=== PATIENT | female | born 1985 | race Caucasian/White ===

== ENCOUNTER 2017-09-06 21:21 | Emergency (ER) | payer MEDICAID ==
[2017-09-06 21:40] VITALS: BP 142/82
--- NOTE | 2017-09-06 22:07 | EDM.PDOC ---
ED HPI GENERAL MEDICAL PROBLEM - General Chief Complaint: Headache Stated Complaint: MIGRAINE Time Seen by Provider: 09/06/17 21:55 Source of Information: Reports: Patient History Limitations: Reports: No Limitations - History of Present Illness INITIAL COMMENTS - FREE TEXT/NARRATIVE: 31 years old female patient with history of migraine headache presented with chief complaint of migraine started this morning. Constant. Generalized aching. Denies any neck pain or stiffness. Denies any fever or chills. Associated with nausea and vomiting. Also light and sound sensitive what she has typical for her migraine. Denies any focal weakness or numbness anywhere. Also she is concerned that she might be . Headache Pain Score (Numeric/FACES): 10 - Related Data Allergies Allergy/AdvReac Type Severity Reaction Status Date / Time ranitidine HCl [From Zantac] Allergy Swelling Verified 10/03/16 19:25 Home Meds: Home Meds Loratadine [Claritin] 10 mg PO DAILY 07/14/14 [History] Methylphenidate HCl [Methylphenidate ER] 27 mg PO DAILY 07/14/14 [History] lamoTRIgine [LaMICtal] 200 mg PO DAILY 07/14/14 [History] methylPREDNISolone Acetate [Depo-Medrol] 1 mg IM ASDIRECTED 04/05/16 [History] Cholecalciferol (Vitamin D3) [Vitamin D3] 1 tab PO DAILY 09/06/17 [History] Past Medical History Gastrointestinal History: Reports: Chronic Constipation, GERD Neurological History: Reports: Migraines - Infectious Disease History Infectious Disease History: Reports: Chicken Pox - Past Surgical History HEENT Surgical History: Reports: Myringotomy w Tube(s), Tonsillectomy Social & Family History - Tobacco Use Smoking Status *Q: Current Every Day Smoker Years of Tobacco use: 3 Packs/Tins Daily: 0.5 Second Hand Smoke Exposure: No - Caffeine Use Caffeine Use: Reports: Coffee, Soda - Recreational Drug Use Recreational Drug Use: No ED ROS GENERAL - Review of Systems Review Of Systems: ROS reveals no pertinent complaints other than HPI. Musculoskeletal: Reports: No Symptoms Skin: Reports: No Symptoms - Physical Exam Exam: See Below Exam Limited By: No Limitations General Appearance: Alert, WD/WN, No Apparent Distress Head Exam: Atraumatic, Normocephalic Neck: Normal Inspection, Supple, Non-Tender, Full Range of Motion Respiratory/Chest: No Respiratory Distress, Lungs Clear, Normal Breath Sounds, No Accessory Muscle Use, Chest Non-Tender Cardiovascular: Normal Peripheral Pulses, Regular Rate, Rhythm, No Edema, No Gallop, No JVD, No Murmur, No Rub GI/Abdominal: Normal Bowel Sounds, Soft, Non-Tender, No Organomegaly, No Distention, No Abnormal Bruit, No Mass Neuro Exam (Abbreviated): Alert, Oriented, CN II-XII Intact, Normal Cognition, Normal Gait, Normal Reflexes, No Motor/Sensory Deficits Back Exam: Normal Inspection, Full Range of Motion, NT Extremities: Normal Inspection, Normal Range of Motion, Non-Tender, No Pedal Edema, Normal Capillary Refill Psychiatric: Normal Affect, Normal Mood Skin Exam: Warm, Dry, Intact, Normal Color, No Rash Course - Vital Signs Last Recorded V/S: Last Vital Signs Temp 36.2 C 09/06/17 21:42 Pulse 81 09/06/17 21:42 Resp 16 09/06/17 21:42 BP 142/82 H 09/06/17 21:42 Pulse Ox 99 09/06/17 21:42 - Orders/Labs/Meds Orders: Active Orders 24 hr Category Date Time Status Sodium Chloride 0.9% [Normal Saline] 1,000 ml Med 09/06/17 22:15 Active IV .BOLUS Medication Orders Sodium Chloride (Normal Saline) 1,000 mls @ 999 mls/hr IV .BOLUS ANAY Last Admin: 09/06/17 22:19 Dose: 999 mls/hr Labs: Laboratory Tests 09/06/17 Range/Units 22:02 Urine HCG, Qual Negative Meds: Medications Generic Name Dose Route Start Last Admin Trade Name Freq PRN Reason Stop Dose Admin Sodium Chloride 1,000 mls @ 999 mls/hr 09/06/17 22:15 09/06/17 22:19 Normal Saline IV 999 mls/hr .BOLUS ANAY Administration Discontinued Medications Generic Name Dose Route Start Last Admin Trade Name Freq PRN Reason Stop Dose Admin Diphenhydramine HCl 25 mg 09/06/17 22:50 09/06/17 23:00 Benadryl IVPUSH 09/06/17 22:51 25 mg ONETIME ONE Administration Hydromorphone HCl 0.5 mg 09/06/17 22:50 09/06/17 23:01 Dilaudid IVPUSH 09/06/17 22:51 0.5 mg ONETIME ONE Administration Ketorolac Tromethamine 30 mg 09/06/17 22:49 09/06/17 23:00 Toradol IVPUSH 09/06/17 22:50 30 mg ONETIME ONE Administration Ondansetron HCl 4 mg 09/06/17 22:51 09/06/17 23:00 Zofran IVPUSH 09/06/17 22:52 4 mg ONETIME ONE Administration - Re-Assessments/Exams Free Text/Narrative Re-Assessment/Exam: 09/06/17 22:06 Patient was seen and examined shortly after arrival. Given 1 L normal saline bolus, 4 mg IV Zofran, 30 mg IV Toradol, 25 mg IV Benadryl and 0.5 mg IV Dilaudid. Symptom markedly improved. Advised to rest and stay hydrated. Continue home meds. Come back symptom worsen. Close follow-up with her primary doctor. Stable for discharge.. 09/06/17 23:25 Departure - Departure Time of Disposition: 23:26 Disposition: Home, Self-Care 01 Condition: Good Clinical Impression: Migraine - Discharge Information Instructions: General Headache Without Cause, [id number], Recurrent Migraine Headache, [id number] Referrals: Shahida Walsh PA [Primary Care Provider] - Forms: ED Department Discharge Additional Instructions: Advised to rest and stay hydrated. Continue home meds. Come back symptom worsen. Close follow-up with her primary doctor - My Orders Last 24 Hours: My Active Orders 09/06/17 22:15 Sodium Chloride 0.9% [Normal Saline] 1,000 ml IV .BOLUS - Assessment/Plan Last 24 Hours: My Active Orders 09/06/17 22:15 Sodium Chloride 0.9% [Normal Saline] 1,000 ml IV .BOLUS Plan: Advised to rest and stay hydrated. Continue home meds. Come back symptom worsen. Close follow-up with her primary doctor
[2017-09-06] MEDS ORDERED: Sodium Chloride 0.9% 1,000 ML IV SCH (22:15)
[2017-09-06] MEDS ORDERED: Ketorolac 30 MG/ML SDV IVPUSH ONE (22:49)
[2017-09-06] MEDS ORDERED: diphenhydrAMINE 50 MG/ML SDV IVPUSH ONE (22:50)
[2017-09-06] MEDS ORDERED: HYDROmorphone 0.5 MG/0.5 ML Syringe IVPUSH ONE (22:50)
[2017-09-06] MEDS ORDERED: Ondansetron 4 MG/2 ML SDV IVPUSH ONE (22:51)
== END 2017-09-06 23:41 | disposition home or self-care (01) ==
LOC: JP.ED 21:21
DX: G43.909 Migraine, unspecified, not intractable, without status migrainosus (principal); K21.9 Gastro-esophageal reflux disease without esophagitis; F17.210 Nicotine dependence, cigarettes, uncomplicated; Z98.890 Other specified postprocedural states; Z96.22 Myringotomy tube(s) status; Z79.899 Other long term (current) drug therapy; Z88.8 Allergy status to other drugs, medicaments and biological substances
CPT/HCPCS: 81025; 96361; 96374; 96375; 99284; J1170; J1200; J1885; J2405; J7040; 99283

== ENCOUNTER 2018-07-23 15:42 | Emergency (ER) | payer MEDICAID ==
[2018-07-23 16:09] VITALS: BP 150/90
--- NOTE | 2018-07-23 16:28 | EDM.PDOC ---
ED HPI GENERAL MEDICAL PROBLEM - General Chief Complaint: ENT Problem Stated Complaint: sinus infection Time Seen by Provider: 07/23/18 16:05 Source of Information: Reports: Patient History Limitations: Reports: No Limitations - History of Present Illness INITIAL COMMENTS - FREE TEXT/NARRATIVE: 32-year-old female has had nasal congestion for the past 36 hours along with a dry cough. She wants to be checked for a "sinus infection". No fevers or chills , no shortness of breath, denies nausea or vomiting. Severity: Mild Associated Symptoms: Reports: Cough. Denies: Chest Pain, Fever/Chills, Malaise , Nausea/Vomiting, Shortness of Breath sinus Pain Score (Numeric/FACES): 6 - Related Data Allergies Allergy/AdvReac Type Severity Reaction Status Date / Time ranitidine HCl [From Zantac] Allergy Swelling Verified 07/23/18 15:55 Home Meds: Home Meds Loratadine [Claritin] 10 mg PO DAILY 07/14/14 [History] Methylphenidate HCl [Methylphenidate ER] 27 mg PO DAILY 07/14/14 [History] lamoTRIgine [Lamictal] 200 mg PO DAILY 07/14/14 [History] methylPREDNISolone acetate [Depo-Medrol] 1 mg IM ASDIRECTED 04/05/16 [History] Cholecalciferol (Vitamin D3) [Vitamin D3] 1 tab PO DAILY 09/06/17 [History] Past Medical History Gastrointestinal History: Reports: Chronic Constipation, GERD Neurological History: Reports: Migraines Psychiatric History: Reports: Anxiety, Depression - Infectious Disease History Infectious Disease History: Reports: Chicken Pox - Past Surgical History HEENT Surgical History: Reports: Myringotomy w Tube(s), Tonsillectomy Social & Family History - Tobacco Use Smoking Status *Q: Never Smoker - Caffeine Use Caffeine Use: Reports: Coffee, Soda - Recreational Drug Use Recreational Drug Use: No ED ROS ENT - Review of Systems Review Of Systems: See Below Constitutional: Denies: Fever, Chills, Malaise HEENT: Reports: Rhinitis. Denies: Ear Pain, Throat Pain Respiratory: Reports: Cough. Denies: Shortness of Breath Skin: Denies: Rash Neurological: Denies: Headache ED EXAM, ENT - Physical Exam Exam: See Below Exam Limited By: No Limitations General Appearance: Alert, No Apparent Distress Eye Exam: Bilateral Eye: Normal Inspection Ears: Other (Both TMs are normal other than scarring from past procedures) Nose: Other (Clear rhinorrhea, turbinates are swollen) Mouth/Throat: Normal Inspection Respiratory/Chest: No Respiratory Distress, Lungs Clear Neurological: Alert, Oriented Course - Vital Signs Last Recorded V/S: Last Vital Signs Temp 98.2 F 07/23/18 15:55 Pulse 111 H 07/23/18 15:55 Resp 16 07/23/18 15:55 BP 150/90 H 07/23/18 15:55 Pulse Ox 97 07/23/18 15:55 - Re-Assessments/Exams Free Text/Narrative Re-Assessment/Exam: 07/23/18 16:30 Explained to patient that she does not need antibiotics. I did give her a prescription for some Afrin to use twice a day for 3 days, she has a common cold or allergies and this just has to resolve. Oral Benadryl may help as well. Departure - Departure Time of Disposition: 16:40 Disposition: Home, Self-Care 01 Condition: Good Clinical Impression: Rhinitis Rhinitis Qualifiers: Rhinitis type: vasomotor Qualified Code(s): J30.0 - Vasomotor rhinitis - Discharge Information Instructions: Nonallergic Rhinitis Referrals: Shahida Walsh PA [Primary Care Provider] - Forms: ED Department Discharge Care Plan Goals: Use 2 sprays in each side of the nose twice a day for the next 3 days, and some Benadryl may help as well. Drink lots of fluids and get rest and consider rechecking at the clinic in 2-3 days if not improving satisfactorily.
== END 2018-07-23 16:41 | disposition home or self-care (01) ==
LOC: JP.ED 15:42
DX: J30.0 Vasomotor rhinitis (principal); F41.9 Anxiety disorder, unspecified; F32.9 Major depressive disorder, single episode, unspecified; K21.9 Gastro-esophageal reflux disease without esophagitis; Z88.8 Allergy status to other drugs, medicaments and biological substances; Z79.899 Other long term (current) drug therapy
CPT/HCPCS: 99283